=== PATIENT | female | born 1950 | race Caucasian/White ===

== ENCOUNTER 2021-04-17 16:35 | Outpatient (CLI) | payer BC | END 2021-04-17 16:36 | disposition home or self-care (01) | LOC: COV 16:35 | PROVIDERS: ATTEND Family Medicine | DX: Z53.9 Procedure and treatment not carried out, unspecified reason (principal) ==

== ENCOUNTER 2022-04-11 09:25 | Emergency (ER) | payer BC ==
--- NOTE | 2022-04-11 09:59 | XRAY Report ---
PROCEDURE: Chest 1 View X-Ray INDICATIONS: Chest Pain TECHNIQUE: One view of the chest was acquired. COMPARISON: 03/24/2022 FINDINGS: Surgical changes and devices: None. Lungs and pleura: No pleural effusions or pneumothorax. Lungs are clear. Mediastinum: Mediastinal contours appear normal. Heart size is normal. Bones and chest wall: No suspicious bony lesions. Overlying soft tissues appear unremarkable. IMPRESSION: No acute cardiopulmonary pathology. Reviewed by: Dar De León MD on 04/11/2022 9:57 AM PDT Approved by: Dar De León MD on 04/11/2022 9:57 AM PDT Station ID: [id number]
[2022-04-11 10:00] LABS: BASOPHILS % (AUTO) 0.5 %; EOSINOPHILS % (AUTO) 0.2 %; HCT - HEMATOCRIT 40.1 % (37.0-47.0); HGB - HEMOGLOBIN 13.7 g/dL (12.0-16.0); LYMPHOCYTES # (AUTO) 0.6 10^3/uL (1.5-3.5); LYMPHOCYTES % (AUTO) 14.5 %; MEAN CORPUSCULAR HEMOGLOBIN 31.7 pg (27.0-31.0); MEAN CORPUSCULAR HGB CONC 34.2 g/dL (32.0-36.0); MEAN CORPUSCULAR VOLUME 92.8 fL (81.0-99.0); MEAN PLATELET VOLUME 9.6 fL (7.9-10.8); MONOCYTES # (AUTO) 0.3 10^3/uL (0.0-1.0); MONOCYTES % (AUTO) 6.3 %; NEUTROPHILS # (AUTO) 3.3 10^3/uL (1.5-6.6); PLT - PLATELET COUNT 207 10^3/uL (130-450); RED BLOOD COUNT 4.32 10^6/uL (4.20-5.40); RED CELL DISTRIBUTION WIDTH 12.2 % (12.0-15.0); WHITE BLOOD COUNT 4.3 x10^3/uL (4.8-10.8)
--- NOTE | 2022-04-11 10:07 | ED Physician Documentation ---
PD HPI CHEST PAIN - Stated complaint Stated Complaint: CHEST PAIN - Chief complaint Chief Complaint: Cardiac - History obtained from History obtained from: Patient - History of Present Illness Timing - onset: How many weeks ago (4) Timing - onset during: Light activity Timing - duration: Weeks (4) Timing - details: Gradual onset, Still present Quality: Aching, Pain Location: Substernal, Right chest Radiation: Back. No: Jaw, Neck Improved by: Rest Worsened by: Exertion, Inspiration Associated symptoms: Shortness of air, Cough, Other (had COVID 4 weeks ago with positive home test. Had URI symptoms and some cough. General illness has improved and cough mostly gone. Having few days of increased pain anterior chest with cough and movement.). No: Nausea, Feeling faint / dizzy, Palpitations Similar symptoms before: Has not had sx before Recently seen: Clinic (had telemedicine appt with PCP from [facility] today and referred to ER for testing.) Review of Systems Constitutional: reports: Myalgias, Fatigue (still with fatigue since COVID 4 weeks ago.). denies: Fever, Chills Nose: reports: Congestion. denies: Rhinorrhea / runny nose Throat: denies: Sore throat Cardiac: reports: Chest pain / pressure. denies: Palpitations, Pedal edema, Calf pain Respiratory: reports: Cough. denies: Dyspnea, Wheezing GI: reports: Nausea. denies: Abdominal Pain, Vomiting, Diarrhea : denies: Dysuria, Frequency Skin: denies: Rash, Lesions Neurologic: reports: Generalized weakness. denies: Focal weakness, Numbness, Near syncope Immunocompromised: denies: Immunocompromised PD PAST MEDICAL HISTORY - Past Medical History Cardiovascular: None Respiratory: None Neuro: None Endocrine/Autoimmune: None - Past Surgical History Past Surgical History: Yes Ortho: Other - Present Medications Home Medications: Ambulatory Orders Medication Instructions Recorded Confirmed No Known Home Medications 04/11/22 04/11/22 - Allergies Allergies/Adverse Reactions: Allergies Allergy/AdvReac Type Severity Reaction Status Date / Time No Known Drug Allergies Allergy Verified 04/11/22 09:27 - Social History Does the pt smoke?: No Smoking Status: Never smoker Does the pt drink ETOH?: Yes Does the pt have substance abuse?: No - Immunizations Immunizations are current?: Yes - POLST Patient has POLST: No PD ED PE NORMAL - Vitals Vital signs reviewed: Yes - General General: Alert and oriented X 3, No acute distress, Well developed/nourished - HEENT HEENT: Moist mucous membranes, Pharynx benign - Neck Neck: Supple, no meningeal sign, No adenopathy - Cardiac Cardiac: RRR, No murmur, No rub - Respiratory Respiratory: No respiratory distress - Abdomen Abdomen: Normal bowel sounds, Soft, Non tender, Non distended - Extremities Extremities: Normal ROM s pain, No edema, No calf tenderness / cord - Neuro Neuro: Alert and oriented X 3, No motor deficit, Normal speech Results - Vitals Vitals: Vital Signs - 24 hr 04/11/22 04/11/22 04/11/22 09:29 09:32 11:33 Temperature 36.2 C L 36.2 C L Heart Rate 98 98 75 Respiratory 16 16 18 Rate Blood Pressure 150/116 H 150/116 H 133/85 H O2 Saturation 98 98 97 04/11/22 04/11/22 12:01 12:40 Temperature 37.0 C 37 C Heart Rate 78 78 Respiratory 12 12 Rate Blood Pressure 135/85 H 135/85 H O2 Saturation 99 99 Oxygen O2 Source Room air - EKG (time done) 09:37 Rate: Rate (enter#) (80) Rhythm: NSR Jeffrey: Normal Intervals: Normal SD QRS: Normal Ischemia: Normal ST segments. No: ST elevation c/w ischemia, ST depression - Labs Labs: Laboratory Tests 04/11/22 04/11/22 04/11/22 08:45 09:55 09:55 WBC 4.3 L RBC 4.32 Hgb 13.7 Hct 40.1 MCV 92.8 MCH 31.7 H MCHC 34.2 RDW 12.2 Plt Count 207 MPV 9.6 Neut # (Auto) 3.3 Lymph # (Auto) 0.6 L [place] # (Auto) 0.3 Eos # (Auto) 0.0 Baso # (Auto) 0.0 Absolute Nucleated RBC 0.00 Nucleated RBC % 0.0 Sodium 140 Potassium 3.7 Chloride 101 Carbon Dioxide 28 Anion Gap 11.0 BUN 9 Creatinine 0.8 Estimated GFR (MDRD) 71 L Glucose 95 Calcium 9.8 Magnesium 2.4 Total Bilirubin 0.6 AST 21 ALT 20 Alkaline Phosphatase 80 Troponin I High Sens C-Reactive Protein < 1.0 Total Protein 8.0 Albumin 4.9 Globulin 3.1 Albumin/Globulin Ratio 1.6 Lipase 52 H 04/11/22 09:55 WBC RBC Hgb Hct MCV MCH MCHC RDW Plt Count MPV Neut # (Auto) Lymph # (Auto) [place] # (Auto) Eos # (Auto) Baso # (Auto) Absolute Nucleated RBC Nucleated RBC % Sodium Potassium Chloride Carbon Dioxide Anion Gap BUN Creatinine Estimated GFR (MDRD) Glucose Calcium Magnesium Total Bilirubin AST ALT Alkaline Phosphatase Troponin I High Sens < 2.3 L C-Reactive Protein Total Protein Albumin Globulin Albumin/Globulin Ratio Lipase - Rads (name of study) chest xray Radiology: Prelim report reviewed (no acute process), See rad report PD MEDICAL DECISION MAKING - ED course Complexity details: reviewed results, considered differential (character of pain seems muscular, with some element sounding pleuritic. Can assess CXR, ECG, labs to ensure no obvious CHF, MS, myocarditis, pneumonia, among other things. ), d/w patient, d/w PMD (her provider at [facility] had done telehealth visit this morning and referred pt to ER. He called and talked with me ahead. Asked for return call, but I did try and the number he gave was central office number. I was on hold 20 minutes and then had to give up to see other patients.) Departure - Departure Disposition: 01 Home, Self Care Clinical Impression: Chest pain Qualifiers: Chest pain type: precordial pain Qualified Code(s): R07.2 - Precordial pain Condition: Stable Record reviewed to determine appropriate education?: Yes Instructions: ED Chest Pain Costochondritis Follow-Up: [facility] [Provider Group] Comments: Your EKG, chest x-ray, blood tests are normal. Your potassium is improved today and is in the normal range. You could still consider dietary or [id number] supplements to improved a little bit more. No signs of heart muscle inflammation or injury. No pneumonia nor fluid around the lungs. I presume there is an inflammatory component either chest wall or perhaps around the lung or heart subsequent to the recent COVID. These would typically be treated with anti-inflammatories such as ibuprofen or naproxen 2 tablets 2-3 times daily with food for the next 5 to 7 days. Add Tylenol if needed for pains. I tried calling back your provider but the call time weight is a little bit long. When he does call back I will update on the findings today. Follow-up with your [facility] provider if not improved over the next several days to week. Discharge Date/Time: 04/11/22 12:40
[2022-04-11 10:23] LABS: ALBUMIN 4.9 g/dL (3.2-5.5); ALBUMIN/GLOBULIN RATIO 1.6 (1.0-2.2); BILIRUBIN,TOTAL 0.6 mg/dL (0.2-1.0); CALCIUM 9.8 mg/dL (8.5-10.3); CREATININE 0.8 mg/dL (0.4-1.0); POTASSIUM 3.7 mmol/L (3.5-5.0)
[2022-04-11] MEDS ORDERED: KETOROLAC 15 MG/ML VIAL IVP STA (10:46)
[2022-04-11 11:06] LABS: MAGNESIUM 2.4 mg/dL (1.7-2.8)
[2022-04-11 11:08] LABS: CRP - C-REACTIVE PROTEIN < 1.0 mg/dL (0-1.0)
[2022-04-11 12:02] VITALS: BP 135/85
--- OUTSIDE RECORDS SUMMARY | 2022-04-12 16:24 | EXTERNAL MEDICAL SUMMARY RPT | Continuity of Care Document ---
:1950 Author Organization [facility] Address [address] [place] [address] Phone Allergies No information. Encounters No information. Functional Status No information. Immunizations No information. Medications date description facility +0000 methylprednisolone All +0000 codeine-guaifenesin All [id number]+0000 methylprednisolone All [id number]+0000 codeine-guaifenesin All Problems No information. Procedures date description facility +0000 EKG Office Complete All Results/Labs No information. Social History date description facility +0000 Never smoker All Vital Signs date measurement value units +0000 BMI BMI 19.82 kg/m2 [id number]+0000 BP_diastolic BP_diastolic 87 mm[H g] [id number]+0000 BP_systolic BP_systolic 144 mm[Hg] [id number]+0000 heart_rate heart_rate 84 /min [id number]+0000 height_metric height_metric 157.48 cm [id number]+0000 height_standard height_standard 62 in +0000 respiration_rate respiration_rate 15 /min [id number]+0000 temperature_metric temperature_metric 36.67 C [id number]+0000 temperature_standard temperature_standard 9 8 F [id number]+0000 weight_metric weight_metric 48.99 kg [id number]+0000 weight_standard weight_standard 108 lb
== END 2022-04-11 12:40 | disposition home or self-care (01) ==
LOC: ED 09:25
DX: R07.2 Precordial pain (principal)
CPT/HCPCS: 36415; 80053; 83690; 83735; 84484; 85025; 86140; 93005; 96374; 99284

== ENCOUNTER 2022-04-12 08:00 | Outpatient (CLI) | payer BC ==
[2022-04-12 10:53] LABS: THYROID STIMULATING HORMONE 0.91 uIU/mL (0.34-5.60)
[2022-04-12 10:55] LABS: FREE T4 (FREE THYROXINE) 0.99 ng/dL (0.58-1.64)
[2022-04-13 18:07] LABS: THYROGLOBULIN ANTIBODY <1.0 IU/mL (0.0-0.9); THYROID PEROXIDASE (TPO) AB 15 IU/mL (0-34)
== END 2022-04-12 23:59 | disposition home or self-care (01) ==
LOC: LAB 08:00
PROVIDERS: ATTEND Family Medicine
DX: R00.0 Tachycardia, unspecified (principal)
CPT/HCPCS: 36415; 84439; 84443; 86376; 86800